=== PATIENT | female | born 1965 | race Caucasian/White ===

== ENCOUNTER 2016-07-18 09:38 | Emergency (ER) | payer SELFPAY ==
[~2016-07-18] VITALS: Ht 167.6 cm; Wt 63.0 kg
[~2016-07-18 09:38] MED LIST: PROG100C PO
[2016-07-18 09:40] VITALS: BP 137/78; PULSE 100; RESP 16; TEMP 98.5; O2SAT 97
[2016-07-18 11:25] LABS: BLOOD, URINE NEG (NEG); GLUCOSE,URINE NEG (NEG); KETONE, URINE NEG (NEG); SQUAMOUS EPITHELIAL CELL URINE 1 /hpf (0-5)
[2016-07-18 11:26] LABS: AUTOMATED NEUTROPHIL # 4.9 TH/MM3 (1.8-7.7); BASOPHIL # 0.1 TH/MM3 (0-0.2); EOSINOPHIL % 0.2 % (0.0-4.0); HEMATOCRIT 41.1 % (35.0-46.0); HEMO FLAGS DIFF FINAL; LYMPH % 32.7 % (9.0-44.0); LYMPHOCYTE # 2.8 TH/MM3 (1.0-4.8); MEAN CELL VOLUME 87.5 FL (80.0-100.0); MEAN CORPUSCULAR HGB CONC 34.3 % (32.0-36.0); MONO % 8.6 % (0.0-8.0); NEUT % 57.5 % (16.0-70.0); PLATELET COUNT 280 TH/MM3 (150-450); RED CELL DISTRIBUTION WIDTH 13.5 % (11.6-17.2); WHITE BLOOD COUNT 8.6 TH/MM3 (4.0-11.0)
[2016-07-18 11:27] LABS: NITRITE,URINE POS (NEG); URINE COLOR ORANGE (YELLW/STRAW)
[2016-07-18 11:28] LABS: BACTERIA, URINE RARE /hpf; COMMENT (UR) CULTURE INDICATED; CULTURE IF INDICATED CULTURE INDICATED
[2016-07-18] MEDS ORDERED: THYR1TAB24 PO (11:38)
[2016-07-18] MEDS ORDERED: PROG200C PO (11:38)
[2016-07-18] MEDS ORDERED: THYR0.237 (11:38)
--- NOTE | 2016-07-18 11:44 | PD ---
HPI Chief Complaint: Abdominal Pain Time Seen by Provider: 11:23 Travel History International Travel<30 days: No Contact w/Intl Traveler<30days: No Traveled to known affect area: No History of Present Illness HPI This patient complains of right flank pain. Duration one week. Severity is moderate.The patient was seen and examined in the presence of the nurse. No alleviating factors. Denies fever or vomiting or diarrhea. Denies hematuria. 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 She is concerned about a kidney stone PFSH Past Medical History Cancer: No Cardiovascular Problems: No Diabetes: No Diminished Hearing: No Endocrine: No GERD: Yes Genitourinary: No Hepatitis: No Hiatal Hernia: No Immune Disorder: No Implanted Vascular Access Dvce: No Medical other: Yes (TRAUMA) Musculoskeletal: No Neurologic: No Psychiatric: No Reproductive: No Respiratory: No Immunizations Current: No Thyroid Disease: No ?: Not LMP: menopause Menopausal: Yes Past Surgical History Abdominal Surgery: Yes (SPLEEN REMOVAL, ABDOMINAL SURGERY) AICD: No Cardiac Surgery: No Section: Yes Ear Surgery: No Endocrine Surgery: No Eye Surgery: No Genitourinary Surgery: No Gynecologic Surgery: No Joint Replacement: No Oral Surgery: No Pacemaker: No Thoracic Surgery: No Tonsillectomy: Yes Social History Alcohol Use: No Tobacco Use: No Substance Use: No Allergies-Medications (Allergen,Severity, Reaction): Coded Allergies: Penicillin (Verified Allergy, Severe, Swelling, 07/18/16) Reported Meds & Prescriptions Reported Meds & Active Scripts Active Tramadol (Tramadol HCl) 50 Mg Tab 50 Mg PO Q6H PRN Reported Thyroid 65 Mg Tab 60 Mg PO DAILY Thyroid (Thyroid (Porcine) (Bulk)) 1 Pow Pow 60 DAILY Progesterone Micronized 200 Mg Cap 200 Mg PO HS Review of Systems General / Constitutional: No: Fever Eyes: No: Visual changes HENT: No: Headaches Cardiovascular: No: Chest Pain or Discomfort Respiratory: No: Shortness of Breath Gastrointestinal: No: Diarrhea Genitourinary: Positive: Flank Pain, No: Dysuria Musculoskeletal: No: Pain Skin: No Rash Neurologic: No: Weakness Psychiatric: No: Depression Endocrine: No: Polydipsia Hematologic/Lymphatic: No: Easy Bruising Physical Exam Narrative GENERAL: Well-nourished, well-developed patient with right flank pain. SKIN: Focused skin assessment reveals no rash and nodules. Skin is Warm and dry. HEAD: Atraumatic. Normocephalic. EYES: Pupils equal and round. No scleral icterus. No injection or drainage. ENT: No nasal bleeding or discharge. Mucous membranes pink and moist. NECK: Trachea midline. No JVD. CARDIOVASCULAR: Regular rate and rhythm. No murmur appreciated. RESPIRATORY: No accessory muscle use. Clear to auscultation. Breath sounds equal bilaterally. GASTROINTESTINAL: Abdomen soft, non-tender, nondistended. Hepatic and splenic margins not palpable. MUSCULOSKELETAL: No obvious deformities. No clubbing. No cyanosis. No edema. NEUROLOGICAL: Awake and alert. No obvious cranial nerve deficits. Motor grossly within normal limits. Normal speech. PSYCHIATRIC: Appropriate mood and affect; insight and judgment normal. Data Data Last Documented VS Vital Signs Date Time Temp Pulse Resp B/P Pulse Ox O2 Delivery O2 Flow Rate FiO2 07/18/16 09:40 98.5 100 16 137/78 97 Room Air Orders Complete Blood Count With Diff (07/18/16 10:13) Comprehensive Metabolic Panel (07/18/16 10:13) Urinalysis - C+S If Indicated (07/18/16 10:13) Iv Access Insert/Monitor (07/18/16 10:13) Oxygen Administration (07/18/16 10:13) Oximetry (07/18/16 10:13) Lipase (07/18/16 10:13) Urine Culture (07/18/16 10:55) Ed Urine Pregnancytest Poc (07/18/16 11:36) Ct Abd/Pel W/O Iv Contrast (07/18/16 ) Ondansetron Inj (Zofran Inj) (07/18/16 11:45) Morphine Inj (Morphine Inj) (07/18/16 11:45) Labs Laboratory Tests Test 07/18/16 10:55 White Blood Count 8.6 TH/MM3 Red Blood Count 4.70 MIL/MM3 Hemoglobin 14.1 GM/DL Hematocrit 41.1 % Mean Corpuscular Volume 87.5 FL Mean Corpuscular Hemoglobin 30.0 PG Mean Corpuscular Hemoglobin 34.3 % Concent Red Cell Distribution Width 13.5 % Platelet Count 280 TH/MM3 Mean Platelet Volume 9.6 FL Neutrophils (%) (Auto) 57.5 % Lymphocytes (%) (Auto) 32.7 % Monocytes (%) (Auto) 8.6 % Eosinophils (%) (Auto) 0.2 % Basophils (%) (Auto) 1.0 % Neutrophils # (Auto) 4.9 TH/MM3 Lymphocytes # (Auto) 2.8 TH/MM3 Monocytes # (Auto) 0.7 TH/MM3 Eosinophils # (Auto) 0.0 TH/MM3 Basophils # (Auto) 0.1 TH/MM3 CBC Comment DIFF FINAL Differential Comment Urine Color ORANGE Urine Turbidity CLEAR Urine pH 6.0 Urine Specific [place] 1.006 Urine Protein NEG mg/dL Urine Glucose (UA) NEG mg/dL Urine Ketones NEG mg/dL Urine Occult Blood NEG Urine Nitrite POS Urine Bilirubin NEG Urine Urobilinogen LESS THAN 2.0 MG/DL Urine Leukocyte Esterase NEG Urine WBC 1 /hpf Urine Squamous Epithelial 1 /hpf Cells Urine Bacteria RARE /hpf Microscopic Urinalysis Comment CULTURE INDICATED Sodium Level 140 MEQ/L Potassium Level 3.7 MEQ/L Chloride Level 105 MEQ/L Carbon Dioxide Level 26.1 MEQ/L Anion Gap 9 MEQ/L Blood Urea Nitrogen 10 MG/DL Creatinine 0.91 MG/DL Estimat Glomerular Filtration 65 ML/MIN Rate Random Glucose 99 MG/DL Calcium Level 9.6 MG/DL Total Bilirubin 0.4 MG/DL Aspartate Amino Transf 20 U/L (AST/SGOT) Alanine Aminotransferase 39 U/L (ALT/SGPT) Alkaline Phosphatase 84 U/L Total Protein 7.5 GM/DL Albumin 4.5 GM/DL Lipase 116 U/L [facility] Medical Decision Making Medical Screen Exam Complete: Yes Emergency Medical Condition: Yes Medical Record Reviewed: Yes Differential Diagnosis Kidney stone, probably nephritis, sciatica Narrative Course I have reviewed the patient's electronic medical record. Patient was here 11 months ago as a trauma alert and had splenectomy and pelvic fracture CBC is normal Metabolic profile is normal LFTs are normal Urinalysis will be cultured but not suspicious for infection, has rare bacteria CT of abdomen and pelvis shows nothing emergent. Evidently looks normal except a needle track in the right iliac region. This represents where she received intramuscular injections prior to CT. I gave her injection of morphine and Zofran for symptom relief Prescribe some tramadol. Extensive workup is negative. Stable for outpatient follow-up Additional Instructions: The patient was advised to follow up with their physician and return if they worsen. The patient was warned about potential sedation for the medications they will receive on prescription. Med/Other Pt SpecificInfo: Prescription(s) given Scripts Tramadol 50 Mg Tab50 Mg PO Q6H PRN (PAIN) #20 TAB Ref 0 Prov:French Gonzalez MD 07/18/16 Disposition: 01 DISCHARGE HOME Condition: Stable French Gonzalez MD Jul 18, 2016 11:44
[2016-07-18] MEDS ORDERED: MORPHINE SULFATE 4 MG/ML INJ IM ONE (11:45)
[2016-07-18] MEDS ORDERED: ONDANSETRON HCL 4 MG/2 ML VIAL IM ONE (11:45)
[2016-07-18 11:48] LABS: ANION GAP 9 MEQ/L (5-15); AST (GOT) 20 U/L (15-37); BICARBONATE 26.1 MEQ/L (21.0-32.0); BLOOD UREA NITROGEN 10 MG/DL (7-18); CHLORIDE 105 MEQ/L (98-107); GLOMERULAR FILTRATION RATE 65 ML/MIN (>89); POTASSIUM 3.7 MEQ/L (3.5-5.1); SODIUM (NA) 140 MEQ/L (136-145)
[2016-07-18 11:51] LABS: ALKALINE PHOSPHATASE 84 U/L (45-117); ALT (GPT) 39 U/L (10-53); TOTAL BILIRUBIN ADULT 0.4 MG/DL (0.2-1.0)
--- NOTE | 2016-07-18 13:46 | RADRPT ---
EXAM DATE/TIME: 07/18/2016 12:46 [facility] COMPARISON: CT ABDOMEN & PELVIS W CONTRAST, October 14, 2015, 18:22. INDICATIONS : Intermittent pain for one week,pain right back and flank radiating to upper mid abdomen with nausea. ORAL CONTRAST: No oral contrast ingested. RADIATION DOSE: 13.28 CTDIvol (mGy) MEDICAL HISTORY : Fractures and spleen removed due to trauma SURGICAL HISTORY : Splenectomy. ENCOUNTER: Initial ACUITY: 1 week PAIN SCALE: 0/10 LOCATION: Right Abdomen TECHNIQUE: Volumetric scanning of the abdomen and pelvis was performed. Using automated exposure control and ad justment of the mA and/or kV according to patient size, radiation dose was kept as low as reasonably achievable to obtain optimal diagnostic quality images. FINDINGS: LOWER LUNGS: The visualized lower lungs are clear. LIVER: Homogeneous density without lesion noncontrast technique. There is no dilation of the biliary tree. No calcified gallstones. SPLEEN: Splenectomy. PANCREAS: Within normal limits. KIDNEYS: Normal in size and shape. There is no mass, stone, or hydronephrosis. The right kidney is mildly pt otic. ADRENAL GLANDS: Within normal limits. VASCULAR: There is no aortic aneurysm. Prior CT at demonstrated IVC filter; this has been removed. BOWEL/MESENTERY: The stomach, small bowel, and colon demonstrate no acute abnormality. There is no free intraperitone al air or fluid. ABDOMINAL WALL: There is some gas in the subcutaneous soft tissues of the lateral right iliac region with some thin l inear densities coursing through the subcutaneous tissues to the superior posterior right iliac regio n, suggestive of a biopsy tract. Recommend clinical correlation for recent interventional procedures .. RETROPERITONEUM: There is no lymphadenopathy. BLADDER: No wall thickening or mass. REPRODUCTIVE: Within normal limits. INGUINAL: There is no lymphadenopathy or hernia. MUSCULOSKELETAL: Deformity of the left symphysis pubis and superior ramus characteristic of healed fractures. CONCLUSION: 1. No evidence of renal stones or hydronephrosis. 2. Several small flecks of gas in the subcutaneous soft tissues superficial to Hayden's fascia senior production planner olateral right pelvis without radiopaque foreign body. This suggests possible recent injection or in terventional procedure. Recommend correlation with clinical exam and history. Armando Salas MD on July 18, 2016 at 13:37 Board Certified Radiologist. This report was verified electronically.
[2016-07-18] MEDS ORDERED: TRAM50TA PO (14:07)
== END 2016-07-18 14:23 | disposition home or self-care (01) ==
LOC: NEPD 09:38
DX: R10.9 Unspecified abdominal pain (principal)
CPT/HCPCS: 74176; 80053; 81001; 83690; 84703; 85025; 87086; 96372; 99284; J2270; J2405